=== PATIENT | male | born 1965 | race Caucasian/White ===

== ENCOUNTER 2021-06-14 08:25 | Day surgery (SDC) | payer BC ==
[~2021-06-14 08:25] MED LIST: LACTATED RINGERS 1,000 ML IV SCH
[2021-06-14 09:12] VITALS: TEMP 97.8
[2021-06-14] MEDS ORDERED: LIDOCAINE 1% (10MG/ML) FOR IV START INTRADERMA ONE (09:15)
[2021-06-14] MEDS ORDERED: GLYCOPYRROLATE 0.2 MG/ML 2 ML VIAL ONE (09:30)
[2021-06-14] MEDS ORDERED: LIDOCAINE 1% INJ 10MG/ML (20 ML MDV) ONE (09:30)
[2021-06-14] MEDS ORDERED: PROPOFOL 10 MG/ML 20 ML VIAL IV ONE (09:30)
--- NOTE | 2021-06-14 09:50 | P.PCN ---
Date of Procedure: 06/14/21 Description of Procedure: BRIEF HISTORY: Patient is a 56-year-old male presenting for outpatient esophagogastroduodenoscopy for evaluation of dyspepsia. He reports epigastric discomfort and difficulty belching especially with carbonated beverages. He reports a remote history of EGD in the past. PROCEDURE PERFORMED: Esophagogastroduodenoscopy with biopsy. PREOPERATIVE DIAGNOSIS: Dyspepsia, epigastric discomfort. ESTIMATED BLOOD LOSS: Minimal. IV sedation per anesthesia. PROCEDURE: After informed consent was obtained, the patient was brought into the endoscopy unit. IV sedation was administered by Anesthesia under continuous monitoring. Initially the Olympus GIF-190 video endoscope was inserted into the mouth. Esophagus intubated without any difficulty. It was gradually advanced into the stomach and duodenum and carefully examined. The bulb and the second part of the duodenum appeared normal, with biopsies taken. The scope at this time was withdrawn to the stomach, adequately insufflated with air, and upon careful examination, mucosa of the antrum, body, cardia and the fundus appeared normal, except for some mild scattered erythema in the antrum suggestive of mild gastritis with biopsies of the antrum and body taken. The scope was then withdrawn into the esophagus. The GE junction was located at 39 cm from the incisors. The esophagus appeared normal, with lower esophageal biopsies. There were no erosions or ulcerations seen and the patient tolerated the procedure well. IMPRESSION: 1. Mild gastritis. 2. Biopsies of the duodenum, antrum and body and lower esophagus. RECOMMENDATIONS: The findings of this examination were discussed with the patient and his family. Okay to resume diet. Okay to resume medications. Await pathology from biopsies. Continue current medical management.
[2021-06-14 09:52] VITALS: RESP 16
[2021-06-14 10:06] VITALS: BP 120/82; PULSE 73
== END 2021-06-14 10:17 | disposition home or self-care (01) ==
LOC: ORWHC2ENDO 08:25
PROVIDERS: ATTEND Internal Medicine
DX: K29.70 Gastritis, unspecified, without bleeding (principal); I10 Essential (primary) hypertension; K21.9 Gastro-esophageal reflux disease without esophagitis; Z98.890 Other specified postprocedural states; Z79.1 Long term (current) use of non-steroidal anti-inflammatories (NSAID); Z79.899 Other long term (current) drug therapy
CPT/HCPCS: 88305; 43239; J2001; J2704